=== PATIENT | male | born 1955 | race Caucasian/White ===

== ENCOUNTER 2020-05-17 12:21 | Emergency (ER) | payer BC ==
[~2020-05-17] VITALS: Ht 182.9 cm; Wt 83.9 kg
[2020-05-17 12:54] VITALS: Ht 182.9 cm; Wt 83.9 kg
[2020-05-17] MEDS ORDERED: CYCLOBENZAPRINE5 MG PO (14:55)
[2020-05-17] MEDS ORDERED: VOLTAREN100 GM TOP (14:55)
[2020-05-17 15:38] VITALS: BP 166/109
== END 2020-05-17 15:38 | disposition home or self-care (01) ==
LOC: ED 12:21
DX: M54.41 Lumbago with sciatica, right side (principal); I10 Essential (primary) hypertension; E11.9 Type 2 diabetes mellitus without complications
CPT/HCPCS: J1885